=== PATIENT | female | born 1945 | race Caucasian/White ===

== ENCOUNTER 2018-04-22 19:19 | Outpatient (REF) | payer MEDICARE, MEDICAID, SELFPAY ==
[2018-04-22 20:08] LABS: Bilirubin Negative (Negative); Blood Negative (Negative); Clarity Clear; Glucose Negative (Negative); Ketones Negative (Negative); Leukocyte Esterase Negative (Negative); Nitrite Negative (Negative); Specific Gravity <= 1.005 (1.005-1.025); Urobilinogen 0.2 EU/dL (Up TO 0.2); pH 5.5 (5-8)
== END 2018-04-22 19:20 ==
LOC: NCHCN 19:19
PROVIDERS: PCP Nurse Practitioner Family; Visit Provider Nurse Practitioner Family
DX: R39.15 Urgency of urination (principal)
CPT/HCPCS: 81003

== ENCOUNTER 2019-03-01 16:10 | Outpatient (REF) | payer MEDICARE, MEDICAID, SELFPAY ==
[2019-03-01 20:23] LABS: Anion Gap 9.5 mmol/L (3-11); BUN 17 mg/dL (7-18); CO2 29.5 mmol/L (21.0-32.0); CREATININE 1.07 mg/dL (0.55-1.02); Calcium 9.1 mg/dL (8.5-10.1); Chloride 103 mmol/L (98-107); Estimated GFR 50.55 (mL/min/1.73m2); Glucose 111 mg/dL (70-100); Potassium 3.9 mmol/L (3.5-5.1); Sodium 142 mmol/L (136-145); TSH (W/Ref FT4) 1.06 uIU/mL (0.358-3.74)
== END 2019-03-01 16:30 ==
LOC: NCHCN 16:10
PROVIDERS: PCP Nurse Practitioner Family; Visit Provider Family Medicine
DX: E03.9 Hypothyroidism, unspecified (principal); N28.9 Disorder of kidney and ureter, unspecified; M81.0 Age-related osteoporosis without current pathological fracture
CPT/HCPCS: 80048; 82306; 84443

== ENCOUNTER 2019-03-08 12:50 | Outpatient (CLI) | payer MEDICARE, MEDICAID, SELFPAY ==
--- NOTE | 2019-03-08 13:30 | DI.RAD_ITS ---
SYMPTOM/DIAGNOSIS: LT SIDED RIB PAIN, R07.81 PA AND LATERAL CHEST AND LEFT RIBS: Comparison is made with chest xray dated 09/24/12. The heart size is normal. The lungs are hyperinflated and show mild chronic interstitial changes. No pneumothorax, infiltrate or effusion is seen. A marker was placed over the lower left ribs in the area of the patient's pain. No rib fracture is identified. There are no thoracic compression fractures. IMPRESSION: No acute abnormality.
== END 2019-03-08 13:10 ==
PROVIDERS: PCP Nurse Practitioner Family; Visit Provider Family Medicine
DX: R07.81 Pleurodynia (principal)
CPT/HCPCS: 71046; 71100

== ENCOUNTER 2019-04-20 10:55 | Outpatient (REF) | payer MEDICARE, MEDICAID, SELFPAY ==
[2019-04-20 13:33] LABS: ALT 37 U/L (12-78); AST 22 U/L (15-37); Albumin 3.6 g/dL (3.4-5.0); Alkaline Phosphatase 112 U/L (46-116); Anion Gap 8.4 mmol/L (3-11); BUN 18 mg/dL (7-18); Bilirubin, Total 0.5 mg/dL (0.2-1.0); CO2 27.6 mmol/L (21.0-32.0); CREATININE 0.87 mg/dL (0.55-1.02); Calcium 8.6 mg/dL (8.5-10.1); Chloride 102 mmol/L (98-107); Glucose 84 mg/dL (70-100); Sodium 138 mmol/L (136-145); Total Protein 6.1 g/dL (6.4-8.2)
== END 2019-04-20 11:15 ==
LOC: NCHCN 10:55
PROVIDERS: PCP Nurse Practitioner Family; Visit Provider Family Medicine
DX: E03.9 Hypothyroidism, unspecified (principal)
CPT/HCPCS: 80053; 84443

== ENCOUNTER 2020-03-09 12:32 | Outpatient (REF) | payer MEDICARE, SELFPAY ==
[2020-03-09 15:03] LABS: Vitamin D 25 Total 64.2 ng/ml (30-100)
[2020-03-09 15:13] LABS: TSH (W/Ref FT4) 1.99 uIU/mL (0.36-3.74)
== END 2020-03-09 12:52 ==
LOC: NCHCN 12:32
PROVIDERS: PCP Family Medicine; Visit Provider Family Medicine
DX: E67.3 Hypervitaminosis D (principal); E03.9 Hypothyroidism, unspecified
CPT/HCPCS: 82306; 84443

== ENCOUNTER 2021-08-30 17:30 | Outpatient (REF) | payer MEDICARE, MEDICAID, SELFPAY ==
[2021-09-01 12:39] LABS: COVID-19 RT-PCR UVMMC Result Negative (Negative)
== END 2021-08-30 17:31 | disposition home or self-care (01) ==
LOC: LBN 17:30
PROVIDERS: PCP Family Medicine; Visit Provider Physician Assistant Medical
DX: Z20.822 Contact with and (suspected) exposure to COVID-19 (principal)
CPT/HCPCS: U0003

== ENCOUNTER 2021-11-12 19:10 | Outpatient (REF) | payer MEDICARE, MEDICAID, SELFPAY ==
[2021-11-12 16:09] LABS: Anion Gap 9.8 mmol/L (3-11); BUN 22 mg/dL (7-18); CO2 28.2 mmol/L (21.0-32.0); CREATININE 0.7 mg/dL (0.55-1.02); Calcium 9.1 mg/dL (8.5-10.1); Chloride 101 mmol/L (98-107); Glucose 83 mg/dL (74-106); Potassium 4.2 mmol/L (3.5-5.1); Sodium 139 mmol/L (136-145); TSH (W/Ref FT4) 2.25 uIU/mL (0.36-3.74)
[2021-11-12 16:49] LABS: Vitamin D 25 Total 54.9 ng/mL (30-100)
[2021-11-12 19:38] LABS: Bilirubin Negative (Negative); Blood Trace-lysed (Negative); Clarity Clear (Clear); Glucose Negative (Negative); Ketones Negative (Negative); Leukocyte Esterase Small (Negative); Nitrite Negative (Negative); Urobilinogen 0.2 EU/dL (Up TO 0.2); pH 6.5 (5-8)
[2021-11-12 19:44] LABS: Bacteria Few HPF (Negative); C & S Indicated? No; Casts Negative LPF (Negative); Crystals Negative HPF (Negative); Epithelial Cells Few HPF (Negative); Mucus Negative (Negative); RBC 0-2 HPF (0-2)
[2021-11-13 14:49] LABS: Vitamin B12 1184 pg/mL (193-986)
== END 2021-11-12 19:11 | disposition home or self-care (01) ==
LOC: NCHCN 19:10
PROVIDERS: PCP Family Medicine; Visit Provider Family Medicine
DX: E03.9 Hypothyroidism, unspecified (principal); E67.3 Hypervitaminosis D; N30.10 Interstitial cystitis (chronic) without hematuria; N28.9 Disorder of kidney and ureter, unspecified; G62.9 Polyneuropathy, unspecified
CPT/HCPCS: 80048; 82306; 81003; 81015; 82607; 84443

== ENCOUNTER 2021-12-03 14:42 | Emergency (ER) | payer MEDICARE, MEDICAID, SELFPAY ==
[2021-12-03] VITALS (22 sets, daily range): BP systolic 114–175; BP diastolic 45–125; PULSE 74–91; RESP 10–27; TEMP 36.6; O2SAT 95–100
--- NOTE | 2021-12-03 14:30 | RT.EKG_ITS ---
APPROVED REPORT Exam: Resting ECG Reason for Exam: chest pain Patient Location: E HR:82 bpm ECG Measurements Heart Rate 82 AXIS WY 169 P 50 QRSd 103 QRS -44 QT 385 T 109 QTc 449 Conclusion Sinus rhythm...normal P axis, V-rate 60- 99 LVH with secondary repolarization abnormality...multi-LVH criteria, abnrm ST-T
[2021-12-03 15:09] LABS: Abs Immature Grans 0.04 10^3/uL (0.0-0.06); Absolute Basophil Count 0.04 10^3/uL (0.0-0.2); Absolute Eosinophil Count 0.11 10^3/uL (0.0-0.7); Absolute Lymphocyte Count 2.11 10^3/uL (1.2-3.4); Absolute Monocyte Count 0.66 10^3/uL (0.1-0.8); Absolute Neutrophil Count 5.98 10^3/uL (1.2-6.7); Basophils % 0.4; Eosinophils % 1.2; HCT 44.3 % (36.0-46.0); Immature Grans % 0.4; Lymphocytes % 23.6; MCH 32.5 pg (27.0-33.0); MCHC 33.9 % (32.0-36.0); MCV 95.9 fL (80-95); MPV 12.3 fL (8.0-11.0); Monocytes % 7.4; Nucleated RBC 0 %; Platelet Count 261 10^3/uL (130-400); RBC 4.62 10^6/uL (3.93-5.22); RDW 11.7 % (11.7-14.6); RDW-SD 40.8 fL; WBC 8.94 10^3/uL (4.4-10.8)
--- NOTE | 2021-12-03 15:10 | W.ED.GENAD ---
Discharge Plan Disposition Patient Disposition: [facility] Condition: Serious Discharge Details Clinical Impression: ACS (acute coronary syndrome) Primary Care Provider: Eber Lizama ED Provider: Jackelin Méndez Home Meds and New Rx's Prescriptions: Continued levothyroxine [Synthroid] 50 MCG tablet 50 mcg PO DAILY 0RF ascorbic acid (vitamin C) [Vitamin C] 500 MG tablet 500 mg PO DAILY 0RF cholecalciferol (vitamin D3) 1,000 UNITS tablet 1,000 units PO DAILY 0RF vitamin B complex [B-50 Complex] 1 EACH tablet 1 tab PO DAILY 0RF Multi Mineral 1 tab PO BID 0RF Lactobac. rhamnosus GG-inulin 1 EACH capsule, sprinkle 1 cap PO DIRECTED 0RF Label Comments: takes every other day meclizine [Antivert] 25 MG tablet 25 mg PO TID PRN PRN (Reason: Dizziness) Qty: 20 0RF ondansetron 4 MG tablet,disintegrating 4 mg PO Q6H PRN PRN (Reason: Nausea / Vomiting) Qty: 10 0RF Discharge Data Discharge Date/Time-TO BE ENTERED AT DEPARTURE: 12/03/21 17:21 Medical Decision Making Patient has a chest x-ray that does not show widened mediastinum No suspicion for aortic dissection clinically Pain-free at time of my assessment Initial EKG had ST elevation in V2 and V3, change from prior which was reviewed in 2017 Did receive 324 of aspirin prior to transfer from breast care Consulted with [facility] upon initial EKG actually had improvement in lead V3, and no indication for ST elevation [facility] per [facility]y dickson nurse practitioner care was able to review 3 EKGs, 2017, 1348, and 1448 Pain-free at time of repeat EKG assessment Patient is resting comfortably although anxious in the room Her initial troponin is 781 with high-sensitivity troponin Her BNP is 5647 She is not hypoxic or tachypneic, listed he Concern for ACS Patient pain-free, blood pressure stable, will heparinize with ACS bolus Patient is alert, oriented, of decisional capacity She is aware of findings and need for transfer at this time At [facility] at that capacity and unable to accept this patient, I did call [facility] and pending return phone call [phone] [facility] [place] phone call at [phone], Dr Terrazas able to accept pt, recommends plavix and lipitor, 600 mg and 80 mg pt pain free at time of reassessment care transition to [facility] pending transfer for cardiac catheterization, ACS, nstemi [place] 1700. Care transitioned to myself with transfer pending. Patient has been accepted at [facility] [place]. Plan is for patient to transfer from [facility] to [facility] for cardiac cath. Discussed at length with the patient, she agrees with this plan. She has been quite anxious. She is agreeable to IV Ativan prior to transfer. Patient transferred to [facility] with heparin running. ordered PRN nitro and ativan. Patient in stable condition. Medical Records Medical records reviewed: Yes I reviewed the patient's medical records. Lab Data Lab results reviewed: Yes I reviewed the patient's lab results. HPI General Date/Time Provider Initiated Documentation: 12/03/21 14:44. HPI Narrative: This 76-year-old female with history of anxiety and sensorineural hearing loss presents with report of chest discomfort since Friday. Patient had her first psychotherapy session and when she was leaving the session she described as very anxiety provoking she developed some pain in her chest. She states that it radiated across her chest to her back. She denies any associated shortness of breath. She felt nauseous but denies diaphoresis. She states that active. She denies constant pain and states that it has been intermittent, exacerbated with exertion and reportedly eating. She states that the pain radiates up into her neck as well. She denies any fever or chills. She denies any calf pain or swelling. Her last episode of pain was at approximately 12:00 today afternoon she ate. She states it lasted for approximately an hour and then resolved. She but she also noticed that her heartbeat has been pounding . She feels very anxious and feels tremulous per patient. Related Data Home Medications Medication Instructions Recorded Confirmed levothyroxine 50 mcg tablet 50 mcg PO DAILY 01/03/13 12/16/14 (Synthroid) Lactobacil rhamnosus GG 10 billion 1 cap PO DIRECTED 08/14/14 12/16/14 cell-inulin 200 mg sprinkle capsule Multi Mineral 1 tab PO BID 08/14/14 12/16/14 ascorbic acid (vitamin C) 500 mg 500 mg PO DAILY 08/14/14 12/16/14 tablet (Vitamin C) cholecalciferol (vitamin D3) 25 1,000 units PO DAILY 08/14/14 12/16/14 mcg (1,000 unit) tablet vitamin B complex (B-50 Complex) 1 tab PO DAILY 08/14/14 12/16/14 meclizine 25 mg tablet (Antivert) 25 mg PO TID PRN PRN #20 tab 12/16/14 ondansetron 4 mg disintegrating 4 mg PO Q6H PRN PRN #10 tabef 12/16/14 tablet Previous Rx's Medication Instructions Recorded meclizine 25 mg tablet (Antivert) 25 mg PO TID PRN PRN #20 tab 12/16/14 ondansetron 4 mg disintegrating 4 mg PO Q6H PRN PRN #10 tabef 12/16/14 tablet Allergies Allergy/AdvReac Type Severity Reaction Status Date / Time chocolate flavor Allergy Mild Hives Unverified 08/14/14 15:11 Penicillins Allergy Mild ? hives Unverified 08/14/14 15:11 Sulfa (Sulfonamide AdvReac Intermediate vaginal Unverified 08/14/14 15:11 Antibiotics) infection as child mold Allergy Intermediate vertigo Uncoded 12/16/14 14:53 dust AdvReac Intermediate vertigo Uncoded 12/16/14 14:53 perfumes AdvReac Intermediate Nausea Uncoded 12/16/14 14:53 General Stated Complaint: Chest Pain LOGAN: 2 Review of Systems All systems reviewed & are unremarkable except as noted in HPI and below PFSH All Active Problems (Updated 12/03/21 @ 17:12 by DESIREE Mcdaniel) ACS (acute coronary syndrome) (Acute) Abnormal auditory perception of right ear (Acute) Conductive hearing loss, external ear (Acute 05/22/17) H/O impacted cerumen (Acute 09/14/15) Impacted cerumen of both ears (Acute 02/03/14) Sensorineural hearing loss of combined sites, bilateral (Acute 03/21/16) Social History Smoking/Tobacco Use Status: Former Tobacco Use Smoking risk assessment performed?: Yes Drug use: Never Do you feel safe in your relationship?: Yes Exam Const General: cooperative, comfortable and no acute distress Orientation: alert and oriented x3 Eyes Sclera: sclerae normal Resp Effort & Inspection: normal respiratory effort Auscultation: clear to auscultation bilaterally Cardio Rate: regular rate Rhythm: regular rhythm Heart Sounds: no murmurs GI Inspection: normal to inspection Other: non-tender abdominal exam Skin General skin exam: no rashes or lesions noted Neuro General: patient alert and patient oriented x3 Extrem Other: no peripheral edema., distal pulses intact Course Vital Signs Vital signs: Vital Signs Temperature 36.6 C 12/03/21 14:40 Pulse 85 12/03/21 14:40 Respiratory Rate 16 12/03/21 14:40 Blood Pressure 131/68 12/03/21 14:40 Pulse Oximetry 100 12/03/21 14:40 Temperature 36.6 C 12/03/21 14:40 Temperature Source Skin 12/03/21 14:40 Pulse 85 12/03/21 14:40 Respiratory Rate 17 12/03/21 14:56 Respiratory Effort 12/03/21 14:56 Respiratory Depth Normal 12/03/21 14:56 Respiratory Pattern Normal 12/03/21 14:56 Blood Pressure 131/68 12/03/21 14:40 Pulse Oximetry 100 12/03/21 14:40 Oxygen Delivery Method Room Air 12/03/21 14:40 Oxygen Flow Rate 0 12/03/21 14:40 Pain Level 0 12/03/21 14:56 Comment 12/03/21 14:40 Lab/Test Results Lab/Test Results: Laboratory Tests Range/Units 12/03/21 14:57 WBC (4.4-10.8) 10^3/uL 8.94 RBC (3.93-5.22) 10^6/uL 4.62 Hgb (11.2-15.7) g/dL 15.0 Hct (36.0-46.0) % 44.3 MCV (80-95) fL 95.9 H MCH (27.0-33.0) pg 32.5 MCHC (32.0-36.0) % 33.9 RDW (11.7-14.6) % 11.7 Plt Count (130-400) 10^3/uL 261 MPV (8.0-11.0) fL 12.3 H Immature Gran % 0.4 Neutrophils % 67.0 Lymphocytes % 23.6 Monocytes % 7.4 Eosinophils % 1.2 Basophils % 0.4 Nucleated RBC % % 0 Absolute Neutrophils (1.2-6.7) 10^3/uL 5.98 Absolute Lymphocytes (1.2-3.4) 10^3/uL 2.11 Absolute Monocytes (0.1-0.8) 10^3/uL 0.66 Absolute Eosinophils (0.0-0.7) 10^3/uL 0.11 Absolute Basophils (0.0-0.2) 10^3/uL 0.04
[2021-12-03 15:34] LABS: ALT 27 U/L (14-59); AST 28 U/L (15-37); Albumin 3.9 g/dL (3.4-5.0); Alkaline Phosphatase 141 U/L (46-116); Anion Gap 8.7 mmol/L (3-11); BUN 18 mg/dL (7-18); Bilirubin, Total 0.5 mg/dL (0.2-1.0); CO2 27.3 mmol/L (21.0-32.0); CREATININE 0.8 mg/dL (0.55-1.02); Calcium 8.8 mg/dL (8.5-10.1); Chloride 100 mmol/L (98-107); Glucose 107 mg/dL (74-106); Magnesium 2.1 mg/dL (1.8-2.4); NT-proBNP 5670 pg/mL (<300); Potassium 3.6 mmol/L (3.5-5.1); Sodium 136 mmol/L (136-145)
[2021-12-03 15:36] LABS: Troponin I 781 ng/L (<or=60)
--- NOTE | 2021-12-03 15:37 | DI.RAD_ITS ---
Exam(s) XR PORTABLE CHEST AP EXAM: XR PORTABLE CHEST AP CLINICAL HISTORY: chest pain TECHNIQUE: 2D digital imaging was performed. COMPARISON: CR XR ribs LT w PA lat chest from 03/08/2019 FINDINGS: LUNGS: Interstitial changes, otherwise clear.. No pleural abnormality seen. HEART: Normal. MEDIASTINUM: Normal. BONES: Unremarkable. IMPRESSION: No acute pulmonary findings. DATA REPOSITORY: RADIATION DOSE DELIVERED:
[2021-12-03 16:18] LABS: PTT Activated 24.4 sec (21.0-27.5)
[2021-12-03] MEDS: Clopidogrel 300 MG TAB 600 MG PO (16:41)
[2021-12-03 16:43] LABS: Source Nasal/Nares
[2021-12-03] MEDS: LORazepam 2 MG/ML VIAL 0.5 MG IVP (17:01)
[2021-12-03 17:21] LABS: COVID-19 PCR Negative (Negative)
== END 2021-12-03 17:21 | disposition short-term general hospital (02) ==
PROVIDERS: Emergency Provider Physician Assistant; PCP Family Medicine
DX: I24.9 Acute ischemic heart disease, unspecified (principal); F41.9 Anxiety disorder, unspecified; Z20.822 Contact with and (suspected) exposure to COVID-19
CPT/HCPCS: 80053; 87635; 93005; 96365; 96375; 96376; 99285; 71045; 83735; 83880; 84484; 85025; 85730; 93010; J2060

== ENCOUNTER 2021-12-14 17:33 | Outpatient (REF) | payer MEDICARE, MEDICAID, SELFPAY | END 2021-12-14 17:34 | disposition home or self-care (01) | LOC: NCHCN 17:33 | PROVIDERS: PCP Family Medicine; Visit Provider Family Medicine | DX: N89.8 Other specified noninflammatory disorders of vagina (principal); R82.79 Other abnormal findings on microbiological examination of urine | CPT/HCPCS: 87077; 87086 ==

== ENCOUNTER 2022-01-15 10:12 | Outpatient (CLI) | payer MEDICARE, MEDICAID, SELFPAY ==
--- NOTE | 2022-01-15 10:15 | RT.EKG_ITS ---
APPROVED REPORT Exam: Resting ECG Reason for Exam: NSTEMI Patient Location: O HR:62 bpm ECG Measurements Heart Rate 62 AXIS PA 168 P 84 QRSd 87 QRS 23 QT 397 T 83 QTc 404 Conclusion Sinus rhythm...normal P axis, V-rate 50- 99 Low voltage, precordial leads...precordial leads <1.0mV Poor R wave progression Baseline wander in lead(s) V6
== END 2022-01-15 10:13 | disposition home or self-care (01) ==
LOC: DI.CARD 10:16
PROVIDERS: PCP Family Medicine; Referring Provider Family Medicine; Visit Provider Internal Medicine Cardiovascular Disease
DX: I21.4 Non-ST elevation (NSTEMI) myocardial infarction (principal)
CPT/HCPCS: 93010

== ENCOUNTER → 2022-01-15 10:12 | Outpatient (BNVA) | payer MEDICARE, MEDICAID, SELFPAY | PROVIDERS: PCP Family Medicine; Referring Provider Family Medicine; Visit Provider Internal Medicine Cardiovascular Disease | DX: I25.2 Old myocardial infarction (principal); I51.81 Takotsubo syndrome | CPT/HCPCS: 93005; 99203; 99214 ==

== ENCOUNTER 2022-02-08 16:11 | Outpatient (REF) | payer MEDICARE, SELFPAY ==
[2022-02-08 14:18] LABS: Abs Immature Grans 0.05 10^3/uL (0.0-0.06); Absolute Basophil Count 0.02 10^3/uL (0.0-0.2); Absolute Eosinophil Count 0.06 10^3/uL (0.0-0.7); Absolute Lymphocyte Count 0.94 10^3/uL (1.2-3.4); Absolute Monocyte Count 0.42 10^3/uL (0.1-0.8); Absolute Neutrophil Count 5.22 10^3/uL (1.2-6.7); Basophils % 0.3; Eosinophils % 0.9; HCT 38.9 % (36.0-46.0); HGB 13.4 g/dL (11.2-15.7); Immature Grans % 0.7; MCH 32.4 pg (27.0-33.0); MCHC 34.4 % (32.0-36.0); MCV 94 fL (80-95); MPV 11.9 fL (8.0-11.0); Monocytes % 6.3; Neutrophils % 77.8; Platelet Count 249 10^3/uL (130-400); RBC 4.13 10^6/uL (3.93-5.22); RDW 11.5 % (11.7-14.6); RDW-SD 39.7 fL; WBC 6.71 10^3/uL (4.4-10.8)
[2022-02-08 15:00] LABS: ALT 22 U/L (14-59); AST 13 U/L (15-37); Albumin 3.7 g/dL (3.4-5.0); Alkaline Phosphatase 120 U/L (46-116); Anion Gap 10.7 mmol/L (3-11); BUN 12 mg/dL (7-18); Bilirubin, Total 0.5 mg/dL (0.2-1.0); CO2 28.3 mmol/L (21.0-32.0); CREATININE 0.8 mg/dL (0.55-1.02); Calcium 8.7 mg/dL (8.5-10.1); Chloride 96 mmol/L (98-107); Glucose 159 mg/dL (74-106); Potassium 3.2 mmol/L (3.5-5.1); Sodium 135 mmol/L (136-145); Total Protein 6.1 g/dL (6.4-8.2)
[2022-02-08 15:47] LABS: Lipase 87 U/L (73-393)
== END 2022-02-08 16:12 | disposition home or self-care (01) ==
LOC: LBN 16:11
PROVIDERS: PCP Family Medicine; Visit Provider Physician Assistant Medical
DX: R19.7 Diarrhea, unspecified (principal); R07.89 Other chest pain
CPT/HCPCS: 80053; 83690; 85025

== ENCOUNTER 2022-02-25 03:01 | Outpatient (CLI) | payer MEDICARE, MEDICAID, SELFPAY ==
--- NOTE | 2022-06-06 09:23 | W.CARDEVENT ---
Date of service: 06/06/22 Time of Service: 09:24 Cardiac Event Recorder Referring Provider:: Eber Lizama Indications:: syncope Cardiac Event Note: This is a 14-day event monitor ordered for syncope. The patient was monitored from March 05 through March 11, 2022 Predominant rhythm was sinus with an average heart rate of 61. Minimum was 45, maximum 121 There were very rare isolated atrial and ventricular ectopic beats. There was no atrial fibrillation, no supraventricular tachycardia, no high-grade AV block, no pauses greater than 3 seconds Patient symptoms corresponded to sinus rhythm in the upper 60s
== END 2022-02-25 03:02 | disposition home or self-care (01) ==
LOC: RT 03:01
PROVIDERS: PCP Family Medicine; Visit Provider Family Medicine
DX: R55 Syncope and collapse (principal)
CPT/HCPCS: 93246; 93270

== ENCOUNTER → 2022-03-06 01:19 | Outpatient (CLI) | payer MEDICARE, MEDICAID, SELFPAY ==
--- NOTE | 2022-03-06 07:30 | DI.US_ITS ---
APPROVED REPORT EXAM: Comprehensive 2D, Doppler, and color-flow Echocardiogram Patient Location: Out-Patient Corner Trimmer Operator: Elizabeth Andrew RDCS (AE) Indications: Lv Function, Non Stemi Other Information Study Quality: Fair. Technically limited study due to body habitus. Conclusion Overall adequate study Normal left ventricular wall thickness and chamber size. Estimated ejection fraction is 55 to 60%. There are no segmental wall motion abnormalities Normal right ventricular size and systolic function Both atria are normal in size Aortic valve is trileaflet and mildly sclerotic with trace regurgitation Normal mitral valve with mild regurgitation Normal tricuspid valve with mild regurgitation. Estimated right ventricular systolic pressure is 20 mmHg Wall motion Left Ventricle The left ventricle is normal size. The left ventricular systolic function is normal. The left ventric ular ejection fraction is within the normal range. There is normal left ventricular wall thickness. T here is normal LV segmental wall motion. There is no ventricular septal defect visualized. LVEF is 56 %. Right Ventricle The right ventricle is normal size. The right ventricular systolic function is normal. Atria The left atrium size is normal. The right atrium size is normal. The interatrial septum is intact wit h no evidence for an atrial septal defect. Aortic Valve The aortic valve is mildly sclerotic Aortic valve is trileaflet. There is no aortic valvular stenosis . Trace aortic regurgitation. Mitral Valve The mitral valve is normal in structure. No evidence of mitral valve stenosis. Mild mitral regurgitat ion.. Tricuspid Valve The tricuspid valve is normal in structure. There is no tricuspid valve stenosis. Mild tricuspid regu rgitation. Pulmonic Valve Pulmonic valve is not well visualized. There is no pulmonic valvular stenosis. Trace pulmonic regurgi tation. Great Vessels The aortic root is normal in size. Ascending aorta is not well visualized. Aortic arch is not well vi sualized. IVC is normal in size and collapses >50% with inspiration. Pericardium There is no pericardial effusion. 2D Dimensions IVSD d PLAX 0.74 cm F: 0.6-1.0 LV Vol A2C d MOD 52.5 mL LVPW d PLAX 0.78 cm F: 0.6 - 1.0 LV Vol A4C d MOD 55.5 mL LVID d PLAX 3.80 cm F: 3.8 - 5.2 LA vol/ BSA A4C s A-L 19.7 mL/m2 LVDs 2.60 cm F: 2.2 - 3.5 LA Area A4C s MOD 11.49 cm2 Ao Root d 2.52 cm F: 2.7 - 3.3 LV EF A4C MOD 55.4 % RA Area A4C 7.34 cm2 LV EF A2C MOD 56.0 % RA Vol/ BSA A4C s A-L 9.0 mL/m2 LV EF Biplane MOD 57.2 % LV EF Teichholz 58.8 % SV 31.85 mL LVEF (García's) 57.17 % F: 54 - 74 SV Index 21.57 mL/m2 LV Volume 46.72 mL F: 46 - 106 LV Volume Index 31.78 mL/m2 F: 29 - 61 LV Vol Biplane MOD 55.7 mL FS 30.50 % M-Mode TAPSE 1.74 cm (M/F) >1.7 LV Diastology MV E' medial 0.083 (>0.07 m/s) E/A Ratio 1.2 LV E/e MED 8.45 (<14) MV E Vmax 0.71 (0.4-1.3 m/s) MV E' lateral 0.093 (>0.1 m/s) MV A Vmax 0.60 (0.4-1.3 m/s) LV E/e LAT 7.55 (<14) MV E/A Ratio 1.17 MV E/E' medial 8.49 MV E/E' lateral 7.59 Aortic Valve LVOT Area 2.83 cm2 AoV Area Vmax 2.34 cm2 LVOT Vmax 0.87 m/s AoV Area/ BSA (Vmax) 1.58 cm2/m2 LVOT Mean Víctor. 0.56 m/s HOMERO Mean Víctor. 2.00 cm2 LVOT Peak Grad 3.0 mmHg HOMERO Mean Víctor. Index 1.36 cm2/m2 LVOT Mean Grad 1.5 mmHg AR DT 3746 msec LVOT VTI 0.168 m AR PHT 1086 msec LVOT Diam s 1.85 cm AoV Vmax 1.05 m/s Velocity Ratio 0.82 AoV Mean Víctor. 0.80 m/s AoV Peak Grad 4.4 mmHg LVOT SV 47.73 mL AoV Mean Grad 2.7 mmHg AoV VTI 0.238 m AoV Area VTI 2.00 cm2 AoV Area/ BSA (VTI) 1.36 cm/m2 Mitral Valve MV DT 220 (160-240 msec) MV PHT 64 msec MV Area PHT 3.45 cm2 MV VTI 0.191 m MV Area VTI 2.50 (4.0-6.0 cm2) Pulmonary Valve PV Vmax 0.79 (0.5-1.5 m/s) RVOT Peak Gr. 1.76 mmHg PV Peak Grad 2.5 mmHg RVOT Mean Gr. 1.05 mmHg PV Mean Grad 1.6 mmHg RVOT VTI 0.151 m PV VTI 0.189 m RVOT Vmax 0.66 m/s Tricuspid Valve TR Peak Grad 17.5 mmHg TR Vmax 2.09 m/s RA Pressure 3.00 mmHg RVSP (TR) 20.5 mmHg
== END ==
PROVIDERS: PCP Family Medicine; Visit Provider Internal Medicine Cardiovascular Disease
DX: I21.4 Non-ST elevation (NSTEMI) myocardial infarction (principal)
CPT/HCPCS: 93306

== ENCOUNTER → 2022-03-26 07:39 | Outpatient (BNVA) | payer MEDICARE, MEDICAID, SELFPAY | PROVIDERS: PCP Family Medicine; Referring Provider Family Medicine; Visit Provider Internal Medicine Cardiovascular Disease | DX: I25.2 Old myocardial infarction (principal); I51.81 Takotsubo syndrome | CPT/HCPCS: 99443; 99213 ==

== ENCOUNTER 2022-04-06 13:20 | Outpatient (REF) | payer MEDICARE, SELFPAY ==
[2022-04-06 17:39] LABS: Bilirubin Negative (Negative); Blood Trace-intact (Negative); Clarity Clear (Clear); Glucose Negative (Negative); Ketones Negative (Negative); Leukocyte Esterase Trace (Negative); Nitrite Negative (Negative); Urobilinogen 0.2 EU/dL (Up TO 0.2)
[2022-04-06 18:07] LABS: Bacteria Negative HPF (Negative); Crystals Negative HPF (Negative); Epithelial Cells Negative HPF (Negative); Mucus Negative (Negative); Other Cells Negative (Negative); RBC Negative HPF (0-2); WBC Negative HPF (0-5)
[2022-04-06 18:08] LABS: C & S Indicated? Yes; Casts Negative LPF (Negative)
[2022-04-08 15:57] LABS: COVID-19 RT-PCR UVMMC Result Negative (Negative)
== END 2022-04-06 13:21 | disposition home or self-care (01) ==
LOC: LBN 13:20
PROVIDERS: PCP Family Medicine; Visit Provider Nurse Practitioner Family
DX: R30.0 Dysuria (principal); Z20.822 Contact with and (suspected) exposure to COVID-19; J34.89 Other specified disorders of nose and nasal sinuses
CPT/HCPCS: U0003; 81003; 81015; 87086

== ENCOUNTER 2022-06-03 15:56 | Outpatient (REF) | payer MEDICARE, SELFPAY ==
--- NOTE | 2022-06-03 15:20 | SKI_PTH ---
PATIENT: Sarah Rolon LOC: [facility] U#:[id number] AGE/SX: 76/F ROOM: RE06/03/[address]: Eber Lizama : 1945 BED: DIS: 06/03/2022 SPEC #: [id number] RECD: 06/03/22 18:18 STATUS: HÉCTOR RECriselda #: [id number] VIJAYA: 06/03/22 15:[address]: Eber Lizama DEPT: Surgical Specimen RECD BY: Jackelin Bartlett Tissues: 1 - SKIN BIOPSY(SHAVE/PUNCH) Procedures: SKIN LEVEL 4 Comments: [id number]
== END 2022-06-03 15:57 | disposition home or self-care (01) ==
LOC: NCHCN 15:56
PROVIDERS: PCP Family Medicine; Visit Provider Family Medicine
DX: D04.71 Carcinoma in situ of skin of right lower limb, including hip (principal)
CPT/HCPCS: 88305

== ENCOUNTER 2022-06-06 09:24 | Outpatient (CLI) | payer MEDICARE, MEDICAID, SELFPAY | END 2022-06-06 09:25 | LOC: CARDOPNVT 06-24 10:19 | PROVIDERS: PCP Family Medicine; Referring Provider Family Medicine; Visit Provider Internal Medicine Cardiovascular Disease | DX: R55 Syncope and collapse (principal) | CPT/HCPCS: 93248 ==

== ENCOUNTER 2022-10-09 16:05 | Outpatient (REF) | payer MEDICARE, MEDICAID, SELFPAY ==
[2022-10-09 22:06] LABS: Epithelial Cells Many HPF (Negative)
[2022-10-09 22:07] LABS: Bacteria Moderate HPF (Negative); C & S Indicated? No; Casts 0-2 Hyaline LPF (Negative); Crystals Negative HPF (Negative); Mucus Negative (Negative); Other Cells Few Renal (Negative)
== END 2022-10-09 16:06 | disposition home or self-care (01) ==
LOC: LBN 16:05
PROVIDERS: PCP Family Medicine; Visit Provider Physician Assistant Medical
DX: R30.0 Dysuria (principal)
CPT/HCPCS: 87077; 81015; 87086

== ENCOUNTER 2022-12-17 13:13 | Outpatient (REF) | payer MEDICARE, SELFPAY ==
[2022-12-17 14:46] LABS: Abs Immature Grans 0.05 10^3/uL (0.0-0.06); Absolute Basophil Count 0.04 10^3/uL (0.0-0.2); Absolute Lymphocyte Count 2.06 10^3/uL (1.2-3.4); Absolute Monocyte Count 0.56 10^3/uL (0.1-0.8); Absolute Neutrophil Count 6.03 10^3/uL (1.2-6.7); Basophils % 0.4; Eosinophils % 2.2; HCT 43.6 % (36.0-46.0); HGB 14.9 g/dL (11.2-15.7); Immature Grans % 0.6; MCH 32.7 pg (27.0-33.0); MCHC 34.2 % (32.0-36.0); MCV 96 fL (80-95); MPV 12.4 fL (8.0-11.0); Monocytes % 6.3; Neutrophils % 67.5; Platelet Count 261 10^3/uL (130-400); RBC 4.55 10^6/uL (3.93-5.22); RDW 11.9 % (11.7-14.6); RDW-SD 41.3 fL; WBC 8.94 10^3/uL (4.4-10.8)
[2022-12-17 15:21] LABS: ALT 25 U/L (14-59); AST 19 U/L (15-37); Alkaline Phosphatase 158 U/L (46-116); Anion Gap 9.2 mmol/L (3-11); BUN 21 mg/dL (7-18); Bilirubin, Total 0.4 mg/dL (0.2-1.0); CO2 28.8 mmol/L (21.0-32.0); CREATININE 0.8 mg/dL (0.55-1.02); Calcium 9.2 mg/dL (8.5-10.1); Calculated LDL 105 mg/dL (<100); Chloride 100 mmol/L (98-107); Cholesterol 182 mg/dL (<200); Estimated GFR 76.79 (mL/min/1.73m2); Glucose 84 mg/dL (74-106); HDL Cholesterol 65 mg/dL (40-60); Magnesium 2.1 mg/dL (1.8-2.4); Potassium 4.1 mmol/L (3.5-5.1); Sodium 138 mmol/L (136-145); TSH (W/Ref FT4) 2.52 uIU/mL (0.36-3.74); Total Protein 6.9 g/dL (6.4-8.2); Triglyceride 64 mg/dL (<150)
[2022-12-17 15:22] LABS: Vitamin D 25 Total 53.9 ng/mL (30-100)
[2022-12-17 18:29] LABS: NT-proBNP 55 pg/mL (<300)
== END 2022-12-17 13:14 | disposition home or self-care (01) ==
LOC: LBN 13:13
PROVIDERS: PCP Family Medicine; Visit Provider Nurse Practitioner Family
DX: E67.3 Hypervitaminosis D (principal); R42 Dizziness and giddiness; E87.6 Hypokalemia; R74.8 Abnormal levels of other serum enzymes; I51.81 Takotsubo syndrome
CPT/HCPCS: 80053; 80061; 82306; 83735; 83880; 84443; 85025

== ENCOUNTER 2022-12-31 21:42 | Outpatient (REF) | payer MEDICARE, SELFPAY ==
[2022-12-31 21:49] LABS: Bilirubin Negative (Negative); Blood Trace-lysed (Negative); Clarity Clear (Clear); Glucose Negative (Negative); Ketones Negative (Negative); Leukocyte Esterase Moderate (Negative); Nitrite Negative (Negative); Urobilinogen 0.2 mg/dL (Up to 0.2); pH 6.5 (5-8)
[2022-12-31 22:09] LABS: Bacteria Moderate HPF (Negative); C & S Indicated? Yes; Crystals Negative HPF (Negative); Epithelial Cells Few HPF (Negative); Mucus Negative (Negative); RBC 0-2 HPF (0-2)
== END 2022-12-31 21:43 | disposition home or self-care (01) ==
LOC: NCHCN 21:42
PROVIDERS: PCP Family Medicine; Visit Provider Family Medicine
DX: N28.9 Disorder of kidney and ureter, unspecified (principal)
CPT/HCPCS: 81003; 81015; 87086

== ENCOUNTER 2023-03-20 13:12 | Outpatient (REF) | payer MEDICARE, SELFPAY ==
[2023-03-20 16:06] LABS: Bacteria Few HPF (Negative); C & S Indicated? C&S Done As Ordered; Casts Negative LPF (Negative); Crystals Negative HPF (Negative); Epithelial Cells Few HPF (Negative); Mucus Negative (Negative); RBC 0-2 HPF (0-2)
== END 2023-03-20 13:13 | disposition home or self-care (01) ==
LOC: LBN 13:12
PROVIDERS: PCP Family Medicine; Visit Provider Physician Assistant Medical
DX: N39.0 Urinary tract infection, site not specified (principal)
CPT/HCPCS: 81015; 87086; 87480; 87510; 87660

== ENCOUNTER 2023-04-10 22:07 | Outpatient (REF) | payer MEDICARE, SELFPAY ==
[2023-04-10 21:23] LABS: Abs Immature Grans 0.02 10^3/uL (0.0-0.06); Absolute Basophil Count 0.03 10^3/uL (0.0-0.2); Absolute Eosinophil Count 0.21 10^3/uL (0.0-0.7); Absolute Lymphocyte Count 1.85 10^3/uL (1.2-3.4); Absolute Neutrophil Count 3.87 10^3/uL (1.2-6.7); Basophils % 0.5; Eosinophils % 3.2; HCT 40.6 % (36.0-46.0); HGB 14.2 g/dL (11.2-15.7); Immature Grans % 0.3; Lymphocytes % 28.1; MCH 32.8 pg (27.0-33.0); MCV 94 fL (80-95); MPV 12.3 fL (8.0-11.0); Monocytes % 9.1; Neutrophils % 58.8; Platelet Count 233 10^3/uL (130-400); RBC 4.33 10^6/uL (3.93-5.22); RDW 11.5 % (11.7-14.6); RDW-SD 39.8 fL; WBC 6.58 10^3/uL (4.4-10.8)
[2023-04-10 21:32] LABS: ALT 21 U/L (14-59); AST 17 U/L (15-37); Alkaline Phosphatase 149 U/L (46-116); Anion Gap 8.6 mmol/L (3-11); BUN 17 mg/dL (7-18); Bilirubin, Total 0.5 mg/dL (0.2-1.0); CO2 30.4 mmol/L (21.0-32.0); CREATININE 0.9 mg/dL (0.55-1.02); Calcium 9.6 mg/dL (8.5-10.1); Chloride 97 mmol/L (98-107); Estimated GFR 66.67 (mL/min/1.73m2); Glucose 93 mg/dL (74-106); Lipase 33 U/L (16-77); Potassium 3.9 mmol/L (3.5-5.1); Sodium 136 mmol/L (136-145); Total Protein 6.9 g/dL (6.4-8.2)
== END 2023-04-10 22:08 | disposition home or self-care (01) ==
LOC: LBN 22:07
PROVIDERS: PCP Family Medicine; Visit Provider Physician Assistant Medical
DX: R10.9 Unspecified abdominal pain (principal)
CPT/HCPCS: 80053; 83690; 85025

== ENCOUNTER → 2023-05-23 00:38 | Outpatient (CLI) | payer MEDICARE, SELFPAY ==
--- NOTE | 2023-05-23 08:00 | DI.US_ITS ---
Exam(s) US ABDOMEN EXAM: US ABDOMEN CLINICAL HISTORY: ABD PAIN, R10.9, EPIGASTRIC/LUQ PAIN/TENDERNESS TECHNIQUE: Ultrasound abdomen performed using standard protocol. COMPARISON: CT ABD PELVIS WITH CONTRAST from 09/13/2012 FINDINGS: ABDOMINAL AORTA AND IVC: Visualized portions normal caliber. PANCREAS: Normal where visualized. LIVER: Normal. Hepatopedal flow in the Portal Vein. The liver measures 13.8 cm long. GALLBLADDER:No evidence of cholelithiasis. No evidence of wall thickening. No pericholecystic fluid i dentified. BILIARY SYSTEM: Common bile duct measures < 7 mm. No intrahepatic biliary ductal dilation. LARSON'S SIGN: Negative. KIDNEYS: Kidneys are symmetric in size. No evidence of renal calculi. There is prominence of the stephen l pelves bilaterally, left greater than right. This is suggested on the CT scan on 09/13/2012 suggesti ng extrarenal pelves rather than hydronephrosis. No renal mass or cyst identified. SPLEEN: Not enlarged. ASCITES: None seen. IMPRESSION: 1. No acute abdominal process. 2. Prominence of the renal pelves bilaterally similar to the CT scan from 09/13/2012, suggesting extrar enal pelvis rather than hydronephrosis. Please correlate with patient's clinical findings. If there is concern for obstruction, renal colic CT scan may be obtained. DATA REPOSITORY:
== END ==
PROVIDERS: PCP Family Medicine; Visit Provider Family Medicine
DX: R93.41 Abnormal radiologic findings on diagnostic imaging of renal pelvis, ureter, or bladder (principal)
CPT/HCPCS: 76700

== ENCOUNTER 2023-06-16 11:57 | Outpatient (REF) | payer MEDICARE, SELFPAY ==
[2023-06-16 15:02] LABS: Abs Immature Grans 0.04 10^3/uL (0.0-0.06); Absolute Basophil Count 0.04 10^3/uL (0.0-0.2); Absolute Eosinophil Count 0.26 10^3/uL (0.0-0.7); Absolute Lymphocyte Count 1.48 10^3/uL (1.2-3.4); Absolute Monocyte Count 0.71 10^3/uL (0.1-0.8); Absolute Neutrophil Count 5.61 10^3/uL (1.2-6.7); Basophils % 0.5; Eosinophils % 3.2; HCT 39.9 % (36.0-46.0); HGB 13.8 g/dL (11.2-15.7); Immature Grans % 0.5; Lymphocytes % 18.2; MCHC 34.6 % (32.0-36.0); MCV 96 fL (80-95); Monocytes % 8.7; Neutrophils % 68.9; Platelet Count 226 10^3/uL (130-400); RBC 4.18 10^6/uL (3.93-5.22); RDW 11.9 % (11.7-14.6); RDW-SD 41.6 fL; WBC 8.14 10^3/uL (4.4-10.8)
[2023-06-16 15:38] LABS: Diff Comment PLT Morph Reviewed; RBC Morphology Normal
== END 2023-06-16 11:58 | disposition home or self-care (01) ==
LOC: NCHCN 11:57
PROVIDERS: PCP Family Medicine; Visit Provider Nurse Practitioner Family
DX: M25.531 Pain in right wrist (principal)
CPT/HCPCS: 85025

== ENCOUNTER 2023-08-22 15:39 | Outpatient (REF) | payer MEDICARE, SELFPAY ==
[2023-08-22 14:24] LABS: Source Nasal/Nares
[2023-08-22 15:42] LABS: COVID-19 PCR Negative (Negative)
== END 2023-08-22 15:40 | disposition home or self-care (01) ==
LOC: LBN 15:39
PROVIDERS: PCP Family Medicine; Visit Provider Physician Assistant Medical
DX: N89.8 Other specified noninflammatory disorders of vagina (principal); R09.81 Nasal congestion; Z20.822 Contact with and (suspected) exposure to COVID-19
CPT/HCPCS: 87635; 87480; 87510; 87660

== ENCOUNTER 2023-09-03 15:27 | Outpatient (REF) | payer MEDICARE, SELFPAY | END 2023-09-03 15:28 | disposition home or self-care (01) | LOC: LBN 15:27 | PROVIDERS: PCP Family Medicine; Visit Provider Physician Assistant Medical | DX: N89.8 Other specified noninflammatory disorders of vagina (principal) | CPT/HCPCS: 87480; 87510; 87660 ==

== ENCOUNTER 2023-09-17 13:51 | Outpatient (REF) | payer MEDICARE, SELFPAY | END 2023-09-17 13:52 | disposition home or self-care (01) | LOC: NCHCN 13:51 | PROVIDERS: PCP Family Medicine; Visit Provider Physician Assistant Medical | DX: N89.8 Other specified noninflammatory disorders of vagina (principal) | CPT/HCPCS: 87480; 87510; 87660 ==

== ENCOUNTER 2023-09-29 19:20 | Outpatient (REF) | payer MEDICARE, SELFPAY ==
[2023-09-29 21:36] LABS: D-Dimer 346 ng/mlFEU (<500)
== END 2023-09-29 19:21 | disposition home or self-care (01) ==
LOC: LBN 19:20
PROVIDERS: PCP Family Medicine; Visit Provider Nurse Practitioner Family
DX: R07.1 Chest pain on breathing (principal)
CPT/HCPCS: 85379

== ENCOUNTER 2023-10-04 15:51 | Outpatient (REF) | payer MEDICARE, SELFPAY ==
[2023-10-04 15:58] LABS: Source Nasal/Nares
[2023-10-04 16:55] LABS: COVID-19 PCR Negative (Negative)
== END 2023-10-04 15:52 | disposition home or self-care (01) ==
LOC: LBN 15:51
PROVIDERS: PCP Family Medicine; Visit Provider Nurse Practitioner Family
DX: Z20.822 Contact with and (suspected) exposure to COVID-19 (principal)
CPT/HCPCS: 87635

== ENCOUNTER 2023-10-14 17:42 | Outpatient (REF) | payer MEDICARE, SELFPAY ==
[2023-10-14 20:30] LABS: Bilirubin Negative (Negative); Blood Small (Negative); Clarity Clear (Clear); Glucose Negative (Negative); Ketones Negative (Negative); Leukocyte Esterase Small (Negative); Nitrite Negative (Negative); Urobilinogen 0.2 mg/dL (Up to 0.2)
[2023-10-14 20:43] LABS: Bacteria Rare HPF (Negative); C & S Indicated? No; Casts Negative LPF (Negative); Crystals Negative HPF (Negative); Epithelial Cells Rare HPF (Negative); Mucus Negative (Negative); RBC 0-2 HPF (0-2); WBC 0-2 HPF (0-5)
== END 2023-10-14 17:43 | disposition home or self-care (01) ==
LOC: NCHCN 17:42
PROVIDERS: PCP Family Medicine; Visit Provider Family Medicine
DX: N36.2 Urethral caruncle (principal)
CPT/HCPCS: 81003; 81015

== ENCOUNTER 2023-10-31 13:59 | Outpatient (REF) | payer MEDICARE, SELFPAY ==
[2023-10-31 21:20] LABS: Abs Immature Grans 0.05 10^3/uL (0.0-0.06); Absolute Basophil Count 0.05 10^3/uL (0.0-0.2); Absolute Eosinophil Count 0.25 10^3/uL (0.0-0.7); Absolute Lymphocyte Count 1.96 10^3/uL (1.2-3.4); Absolute Monocyte Count 0.54 10^3/uL (0.1-0.8); Absolute Neutrophil Count 5.98 10^3/uL (1.2-6.7); Basophils % 0.6; Eosinophils % 2.8; HCT 41.7 % (36.0-46.0); HGB 14.1 g/dL (11.2-15.7); Immature Grans % 0.6; Lymphocytes % 22.2; MCH 32.3 pg (27.0-33.0); MCHC 33.8 % (32.0-36.0); MCV 96 fL (80-95); Monocytes % 6.1; Neutrophils % 67.7; Platelet Count 224 10^3/uL (130-400); RBC 4.36 10^6/uL (3.93-5.22); RDW 11.6 % (11.7-14.6); RDW-SD 40.9 fL; WBC 8.83 10^3/uL (4.4-10.8)
[2023-10-31 21:44] LABS: Anion Gap 9.6 mmol/L (3-11); BUN 18 mg/dL (7-18); CO2 28.4 mmol/L (21.0-32.0); CREATININE 0.8 mg/dL (0.55-1.02); Calcium 9.5 mg/dL (8.5-10.1); Chloride 100 mmol/L (98-107); Estimated GFR 76.31 (mL/min/1.73m2); Glucose 86 mg/dL (74-106); Potassium 4.1 mmol/L (3.5-5.1); Sodium 138 mmol/L (136-145); TSH (W/Ref FT4) 2.12 uIU/mL (0.36-3.74)
== END 2023-10-31 14:00 | disposition home or self-care (01) ==
LOC: NCHCN 13:59
PROVIDERS: PCP Family Medicine; Visit Provider Physician Assistant Medical
DX: R42 Dizziness and giddiness (principal); E03.9 Hypothyroidism, unspecified
CPT/HCPCS: 80048; 84443; 85025

== ENCOUNTER → 2023-11-08 15:24 | Outpatient (CLI) | payer MEDICARE, SELFPAY ==
--- NOTE | 2023-11-08 | DI.RAD_ITS ---
Exam(s) XR FINGER RT MIDDLE XR FINGER RT RING EXAM: XR FINGER RT MIDDLE CLINICAL HISTORY: injury/fall. TECHNIQUE: 2D digital imaging was performed. Three views. COMPARISON: CR,XR XR FINGER RT RING from 11/08/2023 FINDINGS: BONES: There is a nondisplaced fracture through the distal phalanx of the ring finger near the base. There is no extension to the articular surface. There is a comminuted fracture at the base of the m iddle phalanx which does extend to the articular surface and is mildly displaced. No fracture is roman ntified in the middle finger. No bony destructive lesion is seen. JOINTS: No dislocation present. Mild degenerative changes. SOFT TISSUE: Swelling. IMPRESSION: Comminuted intra-articular fracture at the base of the middle phalanx of the ring finger. Nondisplac ed fracture through the distal phalanx of the ring finger.. DATA REPOSITORY: RADIATION DOSE DELIVERED:
--- NOTE | 2023-11-08 16:41 | DI.VRAD_ITS ---
PROCEDURE INFORMATION: Exam: XR Right Finger(s) Exam date and time: 11/08/2023 3:52 PM Age: 78 years old Clinical indication: Other: Injury/fall TECHNIQUE: Imaging protocol: Radiologic exam of the right fingers. Views: Minimum 2 views. COMPARISON: CR XR FINGER RT RING 11/08/2023 3:50 PM FINDINGS: Bones/joints: There is demineralization of the visualized bones. There is a comminuted intra-articular fracture of the base of the middle phalanx of the ring finger with a 3 mm gap at the articular surface. Mild degenerative of the distal interphalangeal joints of the ring finger and small finger. Soft tissues: There is overlying soft swelling. IMPRESSION: Comminuted intra-articular fracture of the base of the middle phalanx of the ring finger. Dictated and Authenticated by: Mike Hooker MD. Ordering:LUIS Cope MD
--- NOTE | 2023-11-08 16:43 | DI.VRAD_ITS ---
PROCEDURE INFORMATION: Exam: XR Right Finger(s) Exam date and time: 11/08/2023 3:50 PM Age: 78 years old Clinical indication: Other: Fall. Injury TECHNIQUE: Imaging protocol: Radiologic exam of the right fingers. Views: Minimum 2 views. COMPARISON: No relevant prior studies available. FINDINGS: Bones/joints: Moderate degenerative disease of the STT and 1st carpometacarpal joint. There is demineralization visualized bones. Heterotopic ossification is seen at the radial side of the STT joint. No acute fracture or dislocation of the middle finger. Redemonstrated comminuted intra-articular fracture of the base of the middle phalanx of the ring finger. Moderate degenerative disease of the distal interphalangeal joint of the visualized fingers. Soft tissues: Normal. IMPRESSION: 1. Comminuted intra-articular fracture of the base of the middle phalanx of the ring finger. 2. No middle finger fracture. Dictated and Authenticated by: Mike Hooker MD. Ordering:LUIS Cope MD
== END ==
PROVIDERS: PCP Family Medicine; Visit Provider Physician Assistant Medical
DX: S62.625A Displaced fracture of middle phalanx of left ring finger, initial encounter for closed fracture (principal); X58.XXXA Exposure to other specified factors, initial encounter
CPT/HCPCS: 73140

== ENCOUNTER → 2023-11-11 01:48 | Outpatient (CLI) | payer MEDICARE, SELFPAY ==
--- NOTE | 2023-11-11 07:45 | DI.CT_ITS ---
Exam(s) CT UPPER EXTREMITY RT WO EXAM: CT UPPER EXTREMITY RT WO CLINICAL HISTORY: ? SURGICAL INTERVENTION,CLOSED FX RT RING FINGER,S60.123J. TECHNIQUE: Imaging Protocol: Axial computed tomography images with coronal and sagittal reformatted images were created and reviewed. COMPARISON: CR,XR XR FINGER RT MIDDLE from 11/08/2023 CR,XR XR FINGER RT RING from 11/08/2023 FINDINGS: Bones: There is a comminuted fracture of the base of the middle phalanx of the right ring finger. T here is proximal displacement of the distal fracture with displacement of the anterior and posterior fracture fragments. The fracture lines are still visualized. There are degenerative changes seen at the 1st carpometacarpal joint. No cellulitic or osteomyelitic changes are identified. No lytic or sclerotic lesions are identified. Soft Tissues: There is edema seen in the soft tissues of the ring finger particularly around the PIP joint. The extensor tendon appears somewhat indistinct and thickened adjacent to the head of the pro ximal phalanx of the ring finger. There does not appear to be retraction. This may represent a stra in, tendinopathy or partial tear. The tendons anteriorly have a similar appearance when compared to the other fingers. IMPRESSION: 1. Comminuted intra-articular fracture of the base of the middle phalanx of the ring finger. 2. Edema in the surrounding soft tissues. 3. Poor definition and thickening of the extensor tendon adjacent to the head of the proximal phalanx of the ring finger. This may represent a strain, tendinopathy or partial tear. RADIATION DOSE DELIVERED: Total DLP Total DLP DATA REPOSITORY: All CT scans at this facility are submitted to the National Radiology Data Registry (NRDR) Dose Index Registry (DIR) with the [employer] (ACR). RADIATION OPTIMIZATION: All CT scans at this facility use at least one of these dose optimization te chniques: automated exposure control; mA and/or kV adjustment per patient size (includes targeted exa ms where dose is matched to clinical indication); or iterative reconstruction.
== END ==
PROVIDERS: PCP Family Medicine; Visit Provider Student in an Organized Health Care Education/Training Program
DX: S62.624A Displaced fracture of middle phalanx of right ring finger, initial encounter for closed fracture (principal); X58.XXXA Exposure to other specified factors, initial encounter
CPT/HCPCS: 73200

== ENCOUNTER → 2023-11-13 11:03 | Outpatient (BNVA) | payer MEDICARE, SELFPAY | PROVIDERS: PCP Family Medicine; Referring Provider Family Medicine; Visit Provider Student in an Organized Health Care Education/Training Program | DX: S62.624A Displaced fracture of middle phalanx of right ring finger, initial encounter for closed fracture (principal); W19.XXXA Unspecified fall, initial encounter; M20.021 Boutonniere deformity of right finger(s) | CPT/HCPCS: 99215 ==

== ENCOUNTER 2023-11-20 14:50 | Outpatient (CLI) | payer MEDICARE, SELFPAY ==
--- NOTE | 2023-11-20 12:00 | DI.RAD_ITS ---
Exam(s) XR FINGER RT RING EXAM: XR FINGER RT RING CLINICAL HISTORY: F/U R RING FINGER FX. TECHNIQUE: 2D digital imaging was performed. COMPARISON: CR,XR XR FINGER RT MIDDLE from 11/08/2023 FINDINGS: 3 views The comminuted intra-articular fracture site at the base of the middle phalanx of the 4th finger appe ars unchanged. No further displacement but no healing evident. No additional fractures identified. IMPRESSION: Nor radiographic change from 11/08/2023. DATA REPOSITORY: RADIATION DOSE DELIVERED:
== END 2023-11-20 14:51 | disposition home or self-care (01) ==
LOC: DIORS 14:52
PROVIDERS: PCP Family Medicine; Visit Provider Student in an Organized Health Care Education/Training Program
DX: M20.021 Boutonniere deformity of right finger(s) (principal); S62.624D Displaced fracture of middle phalanx of right ring finger, subsequent encounter for fracture with routine healing; X58.XXXD Exposure to other specified factors, subsequent encounter
CPT/HCPCS: 99214; 73140

== ENCOUNTER 2023-12-18 15:16 | Outpatient (CLI) | payer MEDICARE, SELFPAY ==
--- NOTE | 2023-12-18 09:15 | DI.RAD_ITS ---
Exam(s) XR FINGER RT RING EXAM: XR FINGER RT RING CLINICAL HISTORY: right ring finger fx. TECHNIQUE: 2D digital imaging was performed of the right finger. Three views were obtained. PA/AP, oblique, and lateral views were obtained. COMPARISON: CR XR FINGER RT RING from 11/20/2023 FINDINGS: BONES: There does not appear to be any significant change in alignment of the comminuted intra-articu lar fracture through the base of the middle phalanx of the right ring finger. The bones are osteopen ic. No bony destructive lesion is seen. JOINTS: No dislocation present. SOFT TISSUE: There is soft tissue swelling of the middle finger. IMPRESSION: Stable alignment of the fracture involving the middle phalanx. DATA REPOSITORY: RADIATION DOSE DELIVERED:
== END 2023-12-18 15:17 | disposition home or self-care (01) ==
LOC: DIORS 15:16
PROVIDERS: PCP Family Medicine
DX: M20.021 Boutonniere deformity of right finger(s); S62.624D Displaced fracture of middle phalanx of right ring finger, subsequent encounter for fracture with routine healing; X58.XXXD Exposure to other specified factors, subsequent encounter
CPT/HCPCS: 99214; 73140

== ENCOUNTER 2023-12-30 17:38 | Outpatient (REF) | payer MEDICARE, SELFPAY | END 2023-12-30 17:39 | disposition home or self-care (01) | LOC: LBN 17:38 | PROVIDERS: PCP Family Medicine; Visit Provider Physician Assistant | DX: R30.0 Dysuria (principal); R82.89 Other abnormal findings on cytological and histological examination of urine | CPT/HCPCS: 87086 ==

== ENCOUNTER 2024-01-29 15:49 | Outpatient (CLI) | payer MEDICARE, SELFPAY ==
--- NOTE | 2024-01-29 13:37 | DI.RAD_ITS ---
Exam(s) XR HAND RT COMPLETE EXAM: XR HAND RT COMPLETE CLINICAL HISTORY: eval R 4th and 5th digits s/p trauma. TECHNIQUE: 2D digital imaging was performed. Three views. COMPARISON: CR,XR XR FINGER RT RING from 11/08/2023 CR,XR XR FINGER RT MIDDLE from 11/08/2023 CR XR FINGER RT RING from 11/20/2023 CR XR FINGER RT RING from 12/18/2023 FINDINGS: BONES: No acute fracture is present. There is an old fracture at the base of middle phalanx of the r ing finger. The bones are extremely osteopenic, greater involving the 4th and 5th fingers peer. No bony destructive lesion is seen. JOINTS: No dislocation present. SOFT TISSUE: No abnormal gas collection or foreign body IMPRESSION: No acute abnormality. DATA REPOSITORY: RADIATION DOSE DELIVERED:
== END 2024-01-29 15:50 | disposition home or self-care (01) ==
LOC: DIORS 15:49
PROVIDERS: PCP Nurse Practitioner Family; Visit Provider Student in an Organized Health Care Education/Training Program
DX: M20.021 Boutonniere deformity of right finger(s) (principal); S62.622D Displaced fracture of middle phalanx of right middle finger, subsequent encounter for fracture with routine healing; X58.XXXD Exposure to other specified factors, subsequent encounter
CPT/HCPCS: 99213; 73130

== ENCOUNTER 2024-03-09 15:02 | Outpatient (REF) | payer MEDICARE, SELFPAY ==
[2024-03-09 22:31] LABS: HCT 40.4 % (36.0-46.0); HGB 13.5 g/dL (11.2-15.7); MCH 32.6 pg (27.0-33.0); MCHC 33.4 % (32.0-36.0); MCV 98 fL (80-95); Platelet Count 219 10^3/uL (130-400); RBC 4.14 10^6/uL (3.93-5.22); RDW 11.7 % (11.7-14.6); RDW-SD 41.9 fL; WBC 8.12 10^3/uL (4.4-10.8)
[2024-03-09 23:24] LABS: ALT 25 U/L (14-59); AST 21 U/L (15-37); Albumin 3.6 g/dL (3.4-5.0); Alkaline Phosphatase 133 U/L (46-116); Anion Gap 7.8 mmol/L (3-11); BUN 20 mg/dL (7-18); CO2 28.2 mmol/L (21.0-32.0); CREATININE 0.8 mg/dL (0.55-1.02); Chloride 102 mmol/L (98-107); Estimated GFR 76.31 (mL/min/1.73m2); Glucose 91 mg/dL (74-106); Sodium 138 mmol/L (136-145); TSH 2.33 uIU/Ml (0.36-3.74); Total Protein 6.9 g/dL (6.4-8.2); Vitamin B12 923 pg/mL (193-986)
[2024-03-09 23:59] LABS: FREE T4 1.08 ng/dL (0.76-1.46)
== END 2024-03-09 15:03 | disposition home or self-care (01) ==
LOC: NCHCN 15:02
PROVIDERS: PCP Nurse Practitioner Family; Visit Provider Nurse Practitioner Family
DX: E03.9 Hypothyroidism, unspecified (principal); N28.9 Disorder of kidney and ureter, unspecified; G60.9 Hereditary and idiopathic neuropathy, unspecified
CPT/HCPCS: 80053; 85027; 82607; 84439; 84443

== ENCOUNTER 2024-04-17 16:22 | Outpatient (REF) | payer MEDICARE, SELFPAY | END 2024-04-17 16:23 | disposition home or self-care (01) | LOC: LBN 16:22 | PROVIDERS: PCP Nurse Practitioner Family; Visit Provider Emergency Medicine Emergency Medical Services | DX: R30.0 Dysuria (principal) | CPT/HCPCS: 87086 ==

== ENCOUNTER 2024-04-19 22:13 | Outpatient (REF) | payer MEDICARE, SELFPAY | END 2024-04-19 22:14 | disposition home or self-care (01) | LOC: LBN 22:13 | PROVIDERS: PCP Nurse Practitioner Family; Visit Provider Nurse Practitioner Family | DX: R30.0 Dysuria (principal); R82.89 Other abnormal findings on cytological and histological examination of urine | CPT/HCPCS: 87086 ==

== ENCOUNTER 2024-04-22 10:55 | Outpatient (REF) | payer MEDICARE, SELFPAY ==
[2024-04-22 14:29] LABS: ESR 9 mm/hr (0-30)
[2024-04-22 15:58] LABS: C-Reactive Protein < 0.50 mg/dL (<or=0.5)
== END 2024-04-22 10:56 | disposition home or self-care (01) ==
LOC: LBN 10:55
PROVIDERS: PCP Nurse Practitioner Family; Visit Provider Family Medicine
DX: R51.9 Headache, unspecified (principal)
CPT/HCPCS: 85652; 86140

== ENCOUNTER 2024-06-10 16:37 | Outpatient (REF) | payer MEDICARE, SELFPAY ==
[2024-06-10 21:18] LABS: Bilirubin Negative (Negative); Blood Trace-lysed (Negative); Clarity Clear (Clear); Glucose Negative (Negative); Ketones Negative (Negative); Leukocyte Esterase Small (Negative); Nitrite Negative (Negative); Specific Gravity <= 1.005 (1.005-1.025); Urobilinogen 0.2 mg/dL (Up to 0.2)
[2024-06-10 21:39] LABS: Bacteria Negative HPF (Negative); C & S Indicated? C&S Done As Ordered; Crystals Negative HPF (Negative); Epithelial Cells Rare HPF (Negative); Mucus Negative (Negative); RBC 0-2 HPF (0-2); WBC 0-2 HPF (0-5)
== END 2024-06-10 16:38 | disposition home or self-care (01) ==
LOC: LBN 16:37
PROVIDERS: PCP Nurse Practitioner Family; Visit Provider Physician Assistant Medical
DX: R35.0 Frequency of micturition (principal)
CPT/HCPCS: 81003; 81015; 87086; 87480; 87510; 87660

== ENCOUNTER 2024-06-15 12:58 | Outpatient (REF) | payer MEDICARE, SELFPAY ==
[2024-06-15 16:57] LABS: Influenza A PCR Negative (Negative); Influenza B PCR Negative (Negative); RSV PCR Negative (Negative)
[2024-06-15 16:59] LABS: COVID-19 PCR Positive (Negative); Source Nasopharynx
== END 2024-06-15 12:59 | disposition home or self-care (01) ==
LOC: LBN 12:58
PROVIDERS: PCP Nurse Practitioner Family; Visit Provider Nurse Practitioner Family
DX: J06.9 Acute upper respiratory infection, unspecified (principal)
CPT/HCPCS: 87635; 87637

== ENCOUNTER 2024-09-17 22:08 | Outpatient (REF) | payer MEDICARE, SELFPAY | END 2024-09-17 22:09 | disposition home or self-care (01) | LOC: LBN 22:08 | PROVIDERS: PCP Nurse Practitioner Family; Visit Provider Nurse Practitioner Family | DX: N30.01 Acute cystitis with hematuria (principal) | CPT/HCPCS: 87086; 87480; 87510; 87660 ==

== ENCOUNTER 2025-04-01 21:25 | Outpatient (REF) | payer MEDICARE, MEDICAID, SELFPAY ==
[2025-04-01 22:03] LABS: RBC 0-2 HPF (0-2)
== END 2025-04-01 21:26 | disposition home or self-care (01) ==
LOC: LBN 21:25
PROVIDERS: PCP Nurse Practitioner Family; Visit Provider Physician Assistant Medical
DX: R35.0 Frequency of micturition (principal)
CPT/HCPCS: 81015; 87086

== ENCOUNTER 2025-04-27 13:44 | Outpatient (REF) | payer MEDICARE, MEDICAID, SELFPAY ==
[2025-04-27 21:59] LABS: ALT 22 U/L (14-59); AST 18 U/L (15-37); Albumin 3.6 g/dL (3.4-5.0); Alkaline Phosphatase 127 U/L (46-116); Anion Gap 8.8 mmol/L (3-11); BUN 20 mg/dL (7-18); Bilirubin, Total 0.5 mg/dL (0.2-1.0); CO2 29.2 mmol/L (21.0-32.0); Calcium 9.0 mg/dL (8.5-10.1); Chloride 101 mmol/L (98-107); Estimated GFR 89.02 (mL/min/1.73m2); Glucose 73 mg/dL (74-106); Potassium 4.0 mmol/L (3.5-5.1); Sodium 139 mmol/L (136-145); TSH (W/Ref FT4) 1.92 uIU/mL (0.36-3.74); Total Protein 6.5 g/dL (6.4-8.2); Vitamin B12 773 pg/mL (193-986); Vitamin D 25 Total 41 ng/mL (30-100)
== END 2025-04-27 13:45 | disposition home or self-care (01) ==
LOC: NCHCN 13:44
PROVIDERS: PCP Nurse Practitioner Family; Visit Provider Nurse Practitioner Family
DX: F41.1 Generalized anxiety disorder (principal); M81.0 Age-related osteoporosis without current pathological fracture; R42 Dizziness and giddiness; E03.9 Hypothyroidism, unspecified
CPT/HCPCS: 80053; 82306; 82607; 84443

== ENCOUNTER 2025-05-04 15:53 | Outpatient (REF) | payer MEDICARE, MEDICAID, SELFPAY ==
[2025-05-04 14:38] LABS: RBC 0-2 HPF (0-2); WBC 0-2 HPF (0-5)
== END 2025-05-04 15:54 | disposition home or self-care (01) ==
LOC: LBN 15:53
PROVIDERS: PCP Nurse Practitioner Family; Visit Provider Physician Assistant Medical
DX: R53.1 Weakness (principal)
CPT/HCPCS: 81015; 87086

== ENCOUNTER 2025-06-01 21:37 | Outpatient (REF) | payer MEDICARE, MEDICAID, SELFPAY ==
[2025-06-01 21:56] LABS: RBC 0-2 HPF (0-2); WBC 0-2 HPF (0-5)
== END 2025-06-01 21:38 | disposition home or self-care (01) ==
LOC: NCHCN 21:37
PROVIDERS: PCP Nurse Practitioner Family; Visit Provider Physician Assistant Medical
DX: R82.81 Pyuria (principal)
CPT/HCPCS: 81015; 87086